=== PATIENT | female | born 1945 | race African-American/Black ===

== ENCOUNTER 2016-12-15 16:46 | Emergency (ER) | payer OTHER, MEDICAID ==
[~2016-12-15] VITALS: Ht 175.3 cm; Wt 102.3 kg
[2016-12-15] MEDS ORDERED: BECL8.7A6 IH (17:25)
[2016-12-15] MEDS ORDERED: ALBU8HFA IH (17:25)
[2016-12-15] MEDS ORDERED: FLUORESCEIN SODIUM 1 MG STRIP OD ONE (18:15)
[2016-12-15] MEDS ORDERED: MOXIFLOXACIN HCL 0.5% 3 ML OPHTHALMIC SOLUTION OD ONE (19:15)
[2016-12-15 19:16] VITALS: BP 135/82
== END 2016-12-15 19:17 | disposition home or self-care (01) ==
LOC: EMS 16:49
DX: T15.10XA Foreign body in conjunctival sac, unspecified eye, initial encounter (principal)
CPT/HCPCS: 99284